=== PATIENT | male | born 2000 | race African-American/Black ===

== ENCOUNTER 2020-05-22 20:46 | Emergency (ER) | payer OTHER ==
[~2020-05-22] VITALS: Ht 177.8 cm; Wt 81.5 kg
[2020-05-22 21:05] VITALS: BP 145/75
--- NOTE | 2020-05-22 21:09 | PHYS DOC ---
General Adult EDM: Chief Complaint: SKIN RASH/ABSCESS HPI: HPI: ".. I got some selin of allergic rash or something.. it selin started early to day.. but we went to the movies..and I started itching everywhere.. especially down here. ...in my groin and lower legs.. 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 Patient denies any new exposures to lotions soaps plants clothing or other things that may have caused AN acute onset of this allergic reaction. Patient states he has never had anything like this before. Patient's rash is most severe in groin area and thighs. The rash does blotch on pressure. No petechiae. Not appear to be infectious. There is no adenopathy. Onset was just today. Patient tried to take a hot shower this made the rash more itchy and more red. Patient denies any recent overseas travel. Patient denies any recent travel outside of the [facility]. Patient denies any specific ill contacts. Patient has had multiple vaccinations for his service. States he is completely up-to-date. Patient denies any contact with any ill individuals. Patient denies any recent sexual activity. Patient has no penile discharge. Patient denies sensitive skin or any specific allergies in the past. Patient states he can barely walk where his thighs touch it causes him severe burning and pain. Patient states he can barely wear his underwear. Currently there is no drainage from the rash and it does appear to be hive-like. No history immunosuppression. No exposure to new animals. Review of Systems: Review of Systems: Constitutional: Denies fever or chills Eyes: Denies change in visual acuity HENT: Denies nasal congestion or sore throat Respiratory: Denies cough or shortness of breath Cardiovascular: Denies chest pain or edema GI: Denies abdominal pain, nausea, vomiting, bloody stools or diarrhea : Denies dysuria Musculoskeletal: Denies back pain or joint pain Integument: Patient complains of acute onset of hives-like rash from mid chest down to ankles-most prevalent and groin area and thigh Neurologic: Denies headache, focal weakness or sensory changes Endocrine: Denies polyuria or polydipsia Lymphatic: Denies swollen glands Psychiatric: Patient is extremely anxious Family History: Family History: Noncontributory to presentation Current Medications: Current Meds: See nursing for home meds Allergies: Allergies: No known drug allergies Physical Exam: PE: Constitutional: Well developed, well nourished, in acute distress, non-toxic appearance. [] HENT: Normocephalic, atraumatic, bilateral external ears normal, oropharynx moist, no oral exudates, nose normal. [] Eyes: PERRLA, EOMI, conjunctiva normal, no discharge. [] Neck: Normal range of motion, no tenderness, supple, no stridor. [] Cardiovascular: Tachycardia heart rate regular rhythm, no murmur [] Lungs & Thorax: Bilateral breath sounds equal at apex no significant wheezing no stridor on auscultation [] Abdomen: Bowel sounds normal, soft, no tenderness, no masses, no pulsatile masses. Normal male anatomy circumcised no penile discharge. Skin: Warm, dry, marked erythema, hives-like rash. The rash extends from mid chest all the way to ankles most prevalent in groin and thighs Back: No tenderness, no CVA tenderness. [] Extremities: No tenderness, no cyanosis, no clubbing, ROM intact, no edema. [] Neurologic: Alert and oriented X 3, normal motor function, normal sensory function, no focal deficits noted. [] Psychologic: Affect very anxious judgement normal, mood normal. [] EKG: EKG: [] Radiology/Procedures: Radiology/Procedures: [] Heart Score: Risk Factors: Risk Factors: DM, Current or recent (<one month) smoker, HTN, HLP, family histo ry of CAD, obesity. Risk Scores: Score 0 - 3: 2.5% MACE over next 6 weeks - Discharge Home Score 4 - 6: 20.3% MACE over next 6 weeks - Admit for Clinical Observation Score 7 - 10: 72.7% MACE over next 6 weeks - Early Invasive Strategies Course & Med Decision Making: Course & Med Decision Making Pertinent Labs and Imaging studies reviewed. (See chart for details) Patient to take only cool showers or baths. Hot bath or showers could make the symptoms worse. Patient take Benadryl 50 mg 4 times a day for itching. May take Tylenol or ibuprofen for discomfort. Patient take prednisone 50 mg daily for 5 days. Patient take Pepcid 20 mg twice a day for the next 10 days. Patient may also use ice packs for some relief of his discomfort. Patient to explore tried to identify any thing that may have initiated this acute onset of a contact or allergic reaction. Patient return if any concerns. Patient must follow-up with [facility]. By time of discharge patient did report marked improvement of the symptoms and rash did appear to be improving. Impression: 1. Acute onset of what appears to be allergic reaction, appears to be a contact dermatitis in his appearance and pattern. [] Dragon Disclaimer: Dragon Disclaimer: This electronic medical record was generated, in whole or in part, using a voice recognition dictation system. Departure Departure: Disposition: 01 HOME SELF CARE/HOMELESS Condition: STABLE Referrals: CHICHO FITZGERALD (PCP) Scripts Diphenhydramine Hcl (BENADRYL) 25 Mg Capsule 50 MG PO QID for allergic for 5 Days, #40 CAP Prov: ARABELLA SAEZ MD 05/22/20 Famotidine (PEPCID) 20 Mg Tablet 20 MG PO BID for allergic for 10 Days, #20 TAB Prov: ARABELLA SAEZ MD 05/22/20 Prednisone (PREDNISONE) 50 Mg Tablet 50 MG PO DAILY for allegic for 5 Days, #5 TAB Prov: ARABELLA SAEZ MD 05/22/20 Dragon Disclaimer This chart was dictated in whole or in part using Voice Recognition software in a busy, high-work load, and often noisy Emergency Department environment. It may contain unintended and wholly unrecognized errors or omissions. ARABELLA SAEZ MD May 22, 2020 21:09
[2020-05-22] MEDS ORDERED: FAMO-63 PO (21:34)
[2020-05-22] MEDS ORDERED: DIPH25CA58 PO (21:34)
[2020-05-22] MEDS ORDERED: PRED50TA PO (21:34)
[2020-05-22] MEDS ORDERED: FAMOTIDINE 20 MG TABLET PO ONE (21:45)
[2020-05-22] MEDS ORDERED: methylPREDNISolone ACETATE 40 MG/ML VIAL. IM ONE (21:45)
[2020-05-22] MEDS ORDERED: diphenhydrAMINE HCL 25 MG CAPSULE PO ONE (21:45)
== END 2020-05-22 21:50 | disposition home or self-care (01) ==
LOC: ER 20:46
DX: L23.9 Allergic contact dermatitis, unspecified cause (principal); R21 Rash and other nonspecific skin eruption; R20.8 Other disturbances of skin sensation
CPT/HCPCS: 96372; 99283; J1030; Q0163

== ENCOUNTER 2020-06-11 01:25 | Emergency (ER) | payer OTHER ==
[~2020-06-11] VITALS: Ht 177.8 cm; Wt 81.0 kg
[~2020-06-11 01:25] MED LIST: DIPH25CA58 PO; FAMO-63 PO; PRED50TA PO
[2020-06-11 01:39] VITALS: BP 125/89
--- NOTE | 2020-06-11 02:03 | PHYS DOC ---
Past History Past Medical History: Asthma Past Surgical History: Other Alcohol Use: Rarely Adult General Chief Complaint Chief Complaint: LACERATION/AVULSION HPI HPI Patient is a 19-year-old male who presents for left proximal thigh laceration. Reports he was trying to open new fur blender packaging when the blade fell from package and cut his left anterior thigh. Hemostasis was achieved naturally without any intervention in route to our facility for evaluation as his spouse was concerned he may need stitches. Patient asymptomatic on arrival today. He is active duty , up-to-date on all vaccinations. No changes in motor and/or sensory function at this time Review of Systems Review of Systems Fourteen body systems of review of systems have been reviewed. See HPI for pertinent positives and negative responses, other zazueta all other systems are negative, non-pertinent or non-contributory Allergies Allergies Allergies Coded Allergies Type Severity Reaction Last Updated Verified No Known Drug Allergies 05/22/20 No Physical Exam Physical Exam Constitutional: Well developed, well nourished, no acute distress, non-toxic appearance. HENT: Normocephalic, atraumatic, bilateral external ears normal, oropharynx moist, no oral exudates, nose normal. Eyes: PERRLA, EOMI, conjunctiva normal, no discharge. Neck: Normal range of motion, no tenderness, supple, no stridor. Cardiovascular: Heart rate regular, sinus rhythm, no murmurs rubs or gallops Lungs & Thorax: Bilateral breath sounds clear to auscultation Abdomen: Bowel sounds normal, soft, no tenderness, no masses, no pulsatile masses. Nonsurgical abdomen, no peritoneal signs Skin: Warm, dry, no erythema, no rash. Back: No tenderness, no CVA tenderness. Extremities: No tenderness, no cyanosis, no clubbing, ROM intact, no edema. Well-appearing 2 cm vertical laceration to superficial anterior left thigh with epidermis and dermis involvement, subcutaneous tissue visible without any obvious foreign body or muscle involvement, hemostasis achieved naturally without intervention Neurologic: Alert and oriented X 3, grossly normal motor & sensory function, no focal deficits noted. Psychologic: Affect normal, judgement normal, mood normal. Current Patient Data Vital Signs Vital Signs Date Time Temp Pulse Resp B/P (MAP) Pulse Ox O2 Delivery O2 Flow Rate FiO2 06/11/20 01:39 97.2 71 14 125/89 (101) 95 Room Air EKG EKG [] Radiology/Procedures Radiology/Procedures [] Heart Score Risk Factors: Risk Factors: DM, Current or recent (<one month) smoker, HTN, HLP, family history of CAD, obesity. Risk Scores: Risk Factors: DM, Current or recent (<one month) smoker, HTN, HLP, family history of CAD, obesity. Course & Med Decision Making Course & Med Decision Making Simple laceration repair with a total of x5 simple interrupted sutures to proximal portion of left anterior thigh. Patient tolerated procedure well I discussed wound care instructions with patient at length in addition for need of removal by healthcare provider in upcoming 10 to 14 days after placement Strict return precautions were discussed with good understanding by patient, all questions and concerns addressed prior to ER departure in stable condition Dragon Disclaimer Dragon Disclaimer This electronic medical record was generated, in whole or in part, using a voice recognition dictation system. Laceration Repair Lac Repair Indication: Laceration Procedure: The patient was placed in the appropriate position and wound irrigated with normal saline. Alcohol cleansing pad was then used to prep site, a total of 2 cc 1% lidocaine was used to anesthetize region. Three-point 0 Ethilon sutures were then used to close skin. A total of 5 simple interrupted sutures placed with great skin closure Total repaired wound length: 2 cm. Other Items: None The patient tolerated the procedure well without any reserved and/or reported complications Departure Departure: Impression: Primary Impression: Laceration of left thigh without complication Disposition: 01 DC HOME SELF CARE/HOMELESS Condition: IMPROVED Referrals: PCP,UNKNOWN (PCP) Patient Instructions: Laceration Care, Adult Additional Instructions: As discussed prior to ER departure, please ensure you clean your wound daily with soap and water. Feel free to apply Vaseline and/or Aquaphor with bandage over the top during work hours or physical activity You will need to be reevaluated by a healthcare professional in upcoming 10 to 14 days for removal of your x5 sutures If any concerning signs or symptoms for infection or other concerning findings present prior to outpatient follow-up please do not hesitate to come back for repeat examination It was a pleasure to take care of you this morning and I wish you a speedy recovery! IVELISSE RABAGO DO Jun 11, 2020 02:03
== END 2020-06-11 02:09 | disposition home or self-care (01) ==
LOC: ER 01:25
DX: S71.112A Laceration without foreign body, left thigh, initial encounter (principal); J45.909 Unspecified asthma, uncomplicated; Z98.890 Other specified postprocedural states; W26.8XXA Contact with other sharp object(s), not elsewhere classified, initial encounter; Y93.9 Activity, unspecified; Y92.89 Other specified places as the place of occurrence of the external cause; Y99.8 Other external cause status
CPT/HCPCS: 12001; 99282